=== PATIENT | male | born 1955 | race American Indian/Alaskan Native ===

== ENCOUNTER 2016-06-19 14:42 | Inpatient (IN) | payer OTHER ==
--- NOTE | 2016-06-19 15:33 | C.PDOC ---
History Of Present Illness 61-year-old male, presents to the emergency department requesting detox fro Heroin. Patients last use was this morning. Denies any physical complaints at this time. patient snorts. Denies chest pain/shortness of breath. Time Seen by Provider: 06/19/16 14:59 Chief Complaint (Nursing): Substance Abuse History Per: Patient History/Exam Limitations: no limitations Past Medical History Reviewed: Historical Data, Nursing Documentation, Vital Signs Vital Signs: Last Vital Signs Temp 99.0 F 06/19/16 17:56 Pulse 79 06/19/16 17:56 Resp 16 06/19/16 17:56 BP 153/87 H 06/19/16 17:56 Pulse Ox 96 06/19/16 17:56 Family History: States: Unknown Family Hx - Social History Hx Alcohol Use: No Hx Substance Use: Yes - Immunization History Hx Influenza Vaccination: No Review Of Systems Except As Marked, All Systems Reviewed And Found Negative. Constitutional: Negative for: Fever, Chills Cardiovascular: Negative for: Chest Pain Respiratory: Negative for: Shortness of Breath Gastrointestinal: Negative for: Vomiting Skin: Negative for: Rash Neurological: Negative for: Weakness, Numbness Physical Exam - Physical Exam Appears: Non-toxic, No Acute Distress Oral Mucosa: Moist Lips: Normal Appearing Neck: Normal ROM Respiratory: No Accessory Muscle Use Extremity: Normal ROM Neurological/Psych: Oriented x3, Normal Speech ED Course And Treatment - Laboratory Results Result Diagrams: 06/19/16 15:47 06/19/16 15:47 O2 Sat by Pulse Oximetry: 99 (RA) Pulse Ox Interpretation: Normal Progress Note: Blood work, UA, UDS ordered and reviewed. 5:50pm-Patient medicall cleared. 6:00pm-Patient accepted by Dr. Hodges for heroin detox admission. Disposition - Disposition Disposition: HOSPITALIZED Disposition Time: 18:00 Condition: STABLE - Clinical Impression Clinical Impression: Heroin dependence - Scribe Statement The provider has reviewed the documentation as recorded by the Shellyibramya Leon All medical record entries made by the Scribe were at my direction and personally dictated by me. I have reviewed the chart and agree that the record accurately reflects my personal performance of the history, physical exam, medical decision making, and the department course for this patient. I have also personally directed, reviewed, and agree with the discharge instructions and disposition.
[2016-06-19 15:55] LABS: BASO # 0.1 K/uL (0.0-0.2); BASO % 1.3 % (0.0-2.0); EOS # 0.2 K/uL (0.0-0.7); EOS % 5.1 % (0.0-4.0); HEMATOCRIT 39.5 % (35.0-51.0); LYMPH # 1.5 K/uL (1.0-4.3); LYMPH % 35.5 % (20.0-40.0); MEAN CELL VOLUME 83.7 fL (80.0-94.0); MEAN CORPUSCULAR HEMOGLOBIN 26.5 pg (27.0-31.0); MEAN CORPUSCULAR HGB CONC 31.6 g/dL (33.0-37.0); MEAN PLATELET VOLUME 7.3 fL (7.2-11.7); MONO # 0.4 K/uL (0.0-0.8); MONO % 8.6 % (0.0-10.0); RED CELL DISTRIBUTION WIDTH 14.3 % (11.5-14.5); WHITE BLOOD COUNT 4.4 K/uL (4.8-10.8)
[2016-06-19 16:06] LABS: CHLORIDE 98 mmol/L (98-107)
[2016-06-19 16:07] LABS: POTASSIUM 4.3 mmol/L (3.6-5.2); SODIUM 140 mmol/L (132-148)
[2016-06-19 16:09] LABS: ALB/GLOB RATIO 1.2 (1.0-2.1); ALKALINE PHOSPHATASE 52 U/L (38-126); AST/SGOT 30 U/L (17-59); BILIRUBIN,TOTAL 0.3 mg/dL (0.2-1.3); BLOOD UREA NITROGEN 24 mg/dL (9-20); CARBON DIOXIDE 30 mmol/L (22-30); GFR AFRICAN-AMERICAN > 60; TOTAL PROTEIN 7.6 g/dL (6.3-8.3)
[2016-06-19 16:10] LABS: ALCOHOL SERUM < 10 mg/dl (0-10); ALT/SGPT 26 U/L (21-72); GLUCOSE,RANDOM 99 mg/dL (75-110)
[2016-06-19 16:56] LABS: RBC URINE 2 /hpf (0-3); URINE BACTERIA RARE (<OCC); URINE BILIRUBIN NEGATIVE (NEGATIVE); URINE BLOOD NEGATIVE (NEGATIVE); URINE COLOR Yellow (YELLOW); URINE GLUCOSE (UA) NORMAL (Normal); URINE KETONE NEGATIVE (NEGATIVE); URINE LEUKOCYTE ESTERASE NEG Leu/uL (Negative); URINE PROTEIN NEGATIVE (NEGATIVE); URINE UROBILINOGEN NORMAL mg/dL (0.2-1.0); WBC URINE < 1 /hpf (0-5)
[2016-06-19] MEDS ORDERED: Buprenorphine Hydrochloride 2 mg SL ONE ×2 (18:30→20:00)
[2016-06-20] MEDS ORDERED: Buprenorphine Hydrochloride 2 mg SL ONE (10:00)
--- NOTE | 2016-06-20 11:54 | PCM.PSYCH ---
Initial Psychiatric Evaluation - Initial Psychiatric Evaluation Type of Admission: Voluntary Legal Status: Capacity Chief Complaint (in patient's own words): I came here to get help History of Present Illness and Precipitating Events: This is a 61 years old AAM currently living alone and unemployed, with a history of opiate use disorder, cocaine use disorder, and depressive disorder, came to the ED to get help in heroin detox. Patient reports of a long history of abusing heroin and cocaine. As per the patient he started abusing heroin in 20s and over the course of years he started sniffing and injecting increasing amounts of heroin. As per the patient , day before yesterday he injected almost 10 bags of heroin alongwith $20 worth of cocaine, became increasingly depressed and started having withdrawal symptoms and so came to the hospital to get help. Patient reports of irritable and depressed mood, at times feelings of hopelessness and helplessness. Pt reports withdrawal symptoms including sweating , headaches, anxiety, nausea, abdominal cramps and joint pains. However, he denies any suicidal ideation or homicidal ideation. Patient denies any auditory or visual hallucinations or any psychotic or manic symptoms. He denies any other substance abuse. Past medical history: None Past psychiatric history: Patient denies any past history of inpatient psychiatric hospitalizations or any history of follow-up with any psychiatrist. However, patient reports history of one detox and 1 rehabilitation in the past, years ago. Patient reports h/o depression and history of suicidal ideation in the past but denies any suicidal attempt. He denies any history of homicidal ideation or attempt in the past. Patient denies any history of auditory or visual hallucinations or any psychotic symptoms in the past Current Medications: Active Medications Generic Name Dose Route Start Last Admin Trade Name Freq PRN Reason Stop Dose Admin Clonidine HCl 0.1 mg 06/19/16 18:28 06/20/16 05:25 Catapres PO 0.1 mg Q8 PRN Administration opiate withdrawal Dicyclomine HCl 10 mg 06/19/16 18:29 Bentyl PO Q6 PRN abdominal spasm Hydroxyzine HCl 25 mg 06/19/16 18:28 06/20/16 09:28 Atarax PO 25 mg Q8 PRN Administration Anxiety Ibuprofen 600 mg 06/19/16 18:29 06/20/16 05:25 Motrin Tab PO 600 mg Q8 PRN Administration Pain, moderate (4-7) Influenza Virus Vaccine 45 mcg 06/21/16 09:00 Afluria IM 06/21/16 09:01 .ONCE ONE Pneumococcal Polyvalent Vaccine 0.5 ml 06/21/16 09:00 Pneumovax 23 Vaccine IM 06/21/16 09:01 .ONCE ONE Trazodone HCl 50 mg 06/19/16 22:00 06/19/16 21:30 Desyrel PO 50 mg HS PRN Administration Insomnia Past Psychiatric History - Past Psychiatric History Previous Treatment History: None Pertinent Medical Hx (Current Medical&Sleep Prob, Allergies): Allergies Allergy/AdvReac Type Severity Reaction Status Date / Time No Known Allergies Allergy Verified 06/19/16 15:34 No Known Home Med 06/19/16 Review of Systems - Review of Systems All systems: reviewed and no additional remarkable complaints except - Psychiatric Psychiatric: Anxiety, Depression, Irritability. absent: Auditory Hallucinations , Suicidal Ideation, Visual Hallucinations Mental Status Examination - Personal Presentation Personal Presentation: Looks stated age - Affect Affect: Constricted, Depressed - Motor Activity Motor Activity: Calm - Reliability in Providing Information Reliability in Providing Information: Good - Speech Speech: Organized - Mood Mood: Depressed, Anxious - Formal Thought Process Formal Thought Process: No Impairment - Obsessions/Compulsions Obsessions: No Compulsions: No - Cognitive Functions Orientation: Person, Place, Situation, Time Sensorium: Alert Attention/Concentration: Attentive Abstract Thinking: Sontag Estimate of Intelligence: Below average Judgement: Imparied, as evidence by: Poor judgement, Imparied, as evidence by: Lack of insight into illness - Risk Risk: Withdrawal, Diminished functioning - Strength & Assets Inventory Strength & Assets Inventory: Cooperative - Limitations Limitations: Living alone DSM 5 DX - DSM 5 DSM 5 Diagnosis: Opioid use disorder severe Opioid withdrawal Cocaine use disorder severe Major depressive disorder recurrent moderate - Recommended/Plan of Treatment Treatment Recommendations and Plan of Treatment: Opioid use disorder severe CBT Psychoeducation Supportive therapy, individual therapy Use CA for abstinence Opioid withdrawal CBT Psychoeducation Supportive therapy, individual therapy Clonidine when necessary Start Subutex Cocaine use disorder severe Monitor signs and symptoms Use CA for abstinence Major depressive disorder recurrent moderate CBT Psychoeducation Supportive therapy, individual therapy Start Paxil 10 mg PO daily Start Trazodone 50 mg PO Q HS - Smoking Cessation Smoking Cessation Initiated: No
--- NOTE | 2016-06-20 22:39 | CP.PCM.CON ---
<Christen Fitzgerald - Last Filed: 06/21/16 04:40> History of Present Illness - History of Present Illness History of Present Illness: Internal medicine consult for Dr. Roberto Fitzgerald, PGY-1 Pt S & E at bedside. 61M with PMH sig for - consulted for HTN. Patient is not currently on any medications at home, but he is aware of his high blood pressure diagnosis. Pt denies any symptoms related to blood pressure at this time - no headache, vision changes, chest pain, abdominal pain, dizziness. PMH: HTN PSH: R inguinal hernia repair All: NKA SH: Admits to occasional ETOH use - #1-2 drinks/mo, tobacco use: 1/2ppd x 30+ yrs, daily heroin use, crack use Review of Systems - Review of Systems All systems: reviewed and no additional remarkable complaints except - Constitutional Constitutional: absent: Chills, Fever - EENT Eyes: absent: Blurred Vision, Change in Vision Ears: absent: Dizziness Nose/Mouth/Throat: absent: Sore Throat - Cardiovascular Cardiovascular: absent: Chest Pain, Leg Edema - Respiratory Respiratory: absent: Cough - Gastrointestinal Gastrointestinal: absent: Abdominal Pain, Nausea, Vomiting - Genitourinary Genitourinary: absent: Dysuria, Hematuria - Integumentary Integumentary: absent: Lesions - Neurological Neurological: absent: Dizziness, Tingling, Weakness Past Patient History - Past Medical History & Family History Past Medical History?: Yes - Past Social History Smoking Status: Light Smoker < 10 Cigarettes Daily - CARDIAC Hx Cardiac Disorders: No Hx Hypertension: No - PULMONARY Hx Tuberculosis: No - NEUROLOGICAL HX Cerebrovascular Accident: No Hx Seizures: No - HEMATOLOGICAL/ONCOLOGICAL Hx Cancer: No Hx Human Immunodeficiency Virus (HIV): No - MUSCULOSKELETAL/RHEUMATOLOGICAL Hx Falls: No Other/Comment: bunion on rt foot - GENITOURINARY/GYNECOLOGICAL Hx Sexually Transmitted Disorders: No - PSYCHIATRIC Hx Substance Use: Yes - SURGICAL HISTORY Hx Herniorrhaphy: Yes - ANESTHESIA Hx Anesthesia: No Hx Anesthesia Reactions: No Hx Malignant Hyperthermia: No Has any member of the family had a problem w/ anesthesia?: No Meds Allergies/Adverse Reactions: Allergies Allergy/AdvReac Type Severity Reaction Status Date / Time No Known Allergies Allergy Verified 06/19/16 15:34 - Medications Medications: Current Medications Clonidine HCl (Catapres) 0.1 mg PO Q8 PRN PRN Reason: opiate withdrawal Last Admin: 06/20/16 16:27 Dose: 0.1 mg Dicyclomine HCl (Bentyl) 10 mg PO Q6 PRN PRN Reason: abdominal spasm Gabapentin (Neurontin) 100 mg PO TID [facility] Last Admin: 06/20/16 18:21 Dose: 100 mg Hydroxyzine HCl (Atarax) 25 mg PO Q8 PRN PRN Reason: Anxiety Last Admin: 06/20/16 22:04 Dose: 25 mg Ibuprofen (Motrin Tab) 600 mg PO Q8 PRN PRN Reason: Pain, moderate (4-7) Last Admin: 06/20/16 05:25 Dose: 600 mg Influenza Virus Vaccine (Afluria) 45 mcg IM .ONCE ONE Stop: 06/21/16 09:01 Paroxetine HCl (Paxil) 10 mg PO DAILY [facility] Pneumococcal Polyvalent Vaccine (Pneumovax 23 Vaccine) 0.5 ml IM .ONCE ONE Stop: 06/21/16 09:01 Trazodone HCl (Desyrel) 50 mg PO HS PRN PRN Reason: Insomnia Last Admin: 06/20/16 22:04 Dose: 50 mg Physical Exam - Constitutional Appears: Non-toxic, No Acute Distress - Head Exam Head Exam: ATRAUMATIC, NORMAL INSPECTION, NORMOCEPHALIC - Eye Exam Eye Exam: EOMI, Normal appearance, PERRL Pupil Exam: NORMAL ACCOMODATION, PERRL - ENT Exam ENT Exam: Mucous Membranes Moist, Normal Exam - Neck Exam Neck exam: Positive for: Full Rom, Normal Inspection - Respiratory Exam Respiratory Exam: Clear to Auscultation Bilateral, NORMAL BREATHING PATTERN. absent: Rales, Rhonchi, Wheezes - Cardiovascular Exam Cardiovascular Exam: REGULAR RHYTHM, +S1, +S2 - GI/Abdominal Exam GI & Abdominal Exam: Normal Bowel Sounds, Soft. absent: Distended, Tenderness - Extremities Exam Extremities exam: Positive for: normal inspection, tenderness (over right medial aspect of proximal foot) - Back Exam Back exam: FULL ROM, NORMAL INSPECTION - Neurological Exam Neurological exam: Alert, CN II-XII Intact, Oriented x3 - Psychiatric Exam Psychiatric exam: Normal Affect, Normal Mood - Skin Skin Exam: Dry, Intact, Normal Color, Warm Results - Vital Signs Recent Vital Signs: Last Vital Signs Temp 97.5 F L 06/20/16 20:53 Pulse 87 06/20/16 20:53 Resp 18 06/20/16 20:53 BP 150/111 H 06/20/16 20:53 Pulse Ox 98 06/20/16 20:53 - Labs Result Diagrams: 06/19/16 15:47 06/19/16 15:47 Assessment & Plan - Assessment and Plan (Free Text) Assessment: High blood pressure BP 150/111 Continue to monitor at this time Will consider starting antihypertensive if warranted Right Foot pain Consider podiatry consult Continue detoxification drug program DW attending - Date & Time Date: 06/20/16 Time: 11:30 <Jose Boss - Last Filed: 06/21/16 06:32> Meds - Medications Medications: Current Medications Clonidine HCl (Catapres) 0.1 mg PO Q8 PRN PRN Reason: opiate withdrawal Last Admin: 06/20/16 16:27 Dose: 0.1 mg Dicyclomine HCl (Bentyl) 10 mg PO Q6 PRN PRN Reason: abdominal spasm Gabapentin (Neurontin) 100 mg PO TID TAMY Last Admin: 06/20/16 18:21 Dose: 100 mg Hydroxyzine HCl (Atarax) 25 mg PO Q8 PRN PRN Reason: Anxiety Last Admin: 06/20/16 22:04 Dose: 25 mg Ibuprofen (Motrin Tab) 600 mg PO Q8 PRN PRN Reason: Pain, moderate (4-7) Last Admin: 06/20/16 05:25 Dose: 600 mg Influenza Virus Vaccine (Afluria) 45 mcg IM .ONCE ONE Stop: 06/21/16 09:01 Paroxetine HCl (Paxil) 10 mg PO DAILY [facility] Pneumococcal Polyvalent Vaccine (Pneumovax 23 Vaccine) 0.5 ml IM .ONCE ONE Stop: 06/21/16 09:01 Trazodone HCl (Desyrel) 50 mg PO HS PRN PRN Reason: Insomnia Last Admin: 06/20/16 22:04 Dose: 50 mg Results - Vital Signs Recent Vital Signs: Last Vital Signs Temp 97.8 F 06/21/16 04:41 Pulse 86 06/21/16 04:41 Resp 18 06/21/16 04:41 BP 141/98 H 06/21/16 04:41 Pulse Ox 97 06/21/16 04:41 - Labs Result Diagrams: 06/19/16 15:47 06/19/16 15:47 Assessment & Plan - Date & Time Date: 06/21/16 (I have seen and examined the patient. I agree with the findings and plan of care as documented by Dr. Fitzgerald. Patient with high blood pressure reading. Patient not on meds at home. Continue to monitor BP and if continues to be elevated, will start antihypertensive medication after 1 day of monitoring. Patient's BP may be elevated currently due to stress versus actually having essential hypertension. Monitor BP.) Time: 06:30 Attending/Attestation - Attestation I have personally seen and examined this patient.: Yes I have fully participated in the care of the patient.: Yes I have reviewed all pertinent clinical information: Yes
[2016-06-21] MEDS ORDERED: Influenza Virus Vaccine 45 mcg/0.5 ml Syr IM ONE (09:00)
[2016-06-21] MEDS ORDERED: Pneumococcal 23-Valent Vaccine IM ONE (09:00)
[2016-06-21] MEDS ORDERED: Buprenorphine Hydrochloride 2 mg SL ONE (10:00)
--- NOTE | 2016-06-21 11:37 | PCM.PYCHPN ---
Psychiatric Progress Note - Psychiatric Progress Note Patient seen today, length of contact: 15 minutes Patient Chief Complaint: I'm feeling little better. Problems Identified/Issues Discussed: Patient seen. Chart reviewed. Case discussed with the staff. Issues related to illness and treatment were discussed with the patient. Reported feeling little better with treatment. Very few withdrawal symptoms. Patient's blood pressure was high yesterday. Today his blood pressure is on better side. We will continue observing and if needed will start antihypertensives medications. At the time of evaluation, patient was awake alert oriented 3, had no delusions, no auditory or visual hallucinations, no suicidal ideations or homicidal ideations. Slept better during the night. Medical Problems: Hypertension, not on any medications. Diagnostic Results: Reviewed DSM 5 Symptoms Update: Improvement in symptoms with treatment Medication Change: No Medical Record Reviewed: Yes Consults ordered or reviewed: Reviewed Mental Status Examination - Cognitive Function Orientation: Person, Place, Situation, Time Memory: Intact Attention: WNL Concentration: WNL Association: WNL Fund of Knowledge: [facility] Decription of patient's judgement and insights: Fair - Mood Mood: Depressed (Less than before) - Affect Affect: Depressed - Speech Speech: Appropriate - Formal Thought Process Formal Thought Process: No Impairment Psychotic Thoughts and Behaviors: None - Suicidal Ideation Suicidal Ideation: No - Homicidal Ideation Homicidal Ideation: No Goal/Treatment Plan - Goal/Treatment Plan Need for Continued Stay: Remain at risks for inpatient hospitalization, Discharge may exacerbated symptoms, Severe functional impairment Progress Toward Problem(s) and Goals/Treatment Plan: Improving with treatment Patient education Supportive therapy Continue treatment as before 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
--- NOTE | 2016-06-21 17:04 | CP.PCM.PN ---
Subjective - Date & Time of Evaluation Date of Evaluation: 06/21/16 Time of Evaluation: 08:55 - Subjective Subjective: Medicine Note- Hospitalist Service Patient was seen and examined at bedside. Patient reports that he is feeling better today, less anxious and minimal withdrawal symptoms at the moment. Patient understands he has hypertension and was told this previous, though he never took medication for it. Patient has no acute complaints at the moment except for foot pain, which he says he has had evaluated outpatient and was told he needed surgery for. No events overnight, per nursing. Objective - Vital Signs/Intake and Output Vital Signs (last 24 hours): Temp Pulse Resp BP Pulse Ox 98.6 F 91 H 18 139/91 H 98 06/21/16 15:30 06/21/16 15:30 06/21/16 15:30 06/21/16 15:30 06/21/16 15:30 - Medications Medications: Current Medications Clonidine HCl (Catapres) 0.1 mg PO Q8 PRN PRN Reason: opiate withdrawal Last Admin: 06/21/16 16:34 Dose: 0.1 mg Dicyclomine HCl (Bentyl) 10 mg PO Q6 PRN PRN Reason: abdominal spasm Gabapentin (Neurontin) 100 mg PO TID [facility] Last Admin: 06/21/16 17:01 Dose: 100 mg Hydroxyzine HCl (Atarax) 25 mg PO Q8 PRN PRN Reason: Anxiety Last Admin: 06/20/16 22:04 Dose: 25 mg Ibuprofen (Motrin Tab) 600 mg PO Q8 PRN PRN Reason: Pain, moderate (4-7) Last Admin: 06/20/16 05:25 Dose: 600 mg Paroxetine HCl (Paxil) 10 mg PO DAILY [facility] Last Admin: 06/21/16 09:17 Dose: 10 mg Trazodone HCl (Desyrel) 50 mg PO HS PRN PRN Reason: Insomnia Last Admin: 06/20/16 22:04 Dose: 50 mg - Constitutional Appears: Non-toxic, No Acute Distress - Head Exam Head Exam: ATRAUMATIC, NORMAL INSPECTION, NORMOCEPHALIC - Eye Exam Pupil Exam: NORMAL ACCOMODATION - ENT Exam ENT Exam: Mucous Membranes Moist - Respiratory Exam Respiratory Exam: Clear to Ausculation Bilateral, NORMAL BREATHING PATTERN. absent: Prolonged Expiratory Phase, Rales, Rhonchi, Wheezes - Cardiovascular Exam Cardiovascular Exam: REGULAR RHYTHM, +S1, +S2 - GI/Abdominal Exam GI & Abdominal Exam: Soft, Normal Bowel Sounds. absent: Tenderness, Diminished Bowel Sounds, Hypoactive Bowel Sounds - Extremities Exam Extremities Exam: Normal Capillary Refill Additional comments: tender on medial side - Neurological Exam Neurological Exam: Alert, Awake, Oriented x3 - Psychiatric Exam Psychiatric exam: Normal Affect, Normal Mood - Skin Skin Exam: Dry, Intact, Normal Color, Warm Assessment and Plan - Assessment and Plan (Free Text) Assessment: High blood pressure Continue to monitor for now.Patient's BP appears to be decreasing without intervention, possibly secondary to detox treatment. Started on Lisinopril 10mg PO Daily. Will continue to follow Right Foot pain Discussed with patient, he has seen podiatry in the past and was told he had bone spurs that are causing swelling and will need surgery. Patient will need followup outpatient. Continue to monitor. Continue detox as per psych management.
--- NOTE | 2016-06-22 06:50 | CP.PCM.PN ---
<EusebioJamar - Last Filed: 06/22/16 21:58> Subjective - Date & Time of Evaluation Date of Evaluation: 06/22/16 Time of Evaluation: 08:00 - Subjective Subjective: Medicine Note- Hospitalist Service Patient was seen and examined at bedside. Patient reports no acute complaints at this time. Patient says he feels better than yesterday, slept well. No events overnight, per nursing. Patient was instructed to continue medications upon discharge and seek primary care followup. Instructions given to followup in [facility] if unable to find others. Objective - Vital Signs/Intake and Output Vital Signs (last 24 hours): Temp Pulse Resp BP Pulse Ox 98.2 F 86 20 123/81 97 06/22/16 06:21 06/22/16 06:21 06/22/16 06:21 06/22/16 06:21 06/22/16 06:21 - Medications Medications: Current Medications Clonidine HCl (Catapres) 0.1 mg PO Q8 PRN PRN Reason: opiate withdrawal Last Admin: 06/21/16 16:34 Dose: 0.1 mg Dicyclomine HCl (Bentyl) 10 mg PO Q6 PRN PRN Reason: abdominal spasm Gabapentin (Neurontin) 100 mg PO TID [facility] Last Admin: 06/21/16 17:01 Dose: 100 mg Hydroxyzine HCl (Atarax) 25 mg PO Q8 PRN PRN Reason: Anxiety Last Admin: 06/20/16 22:04 Dose: 25 mg Ibuprofen (Motrin Tab) 600 mg PO Q8 PRN PRN Reason: Pain, moderate (4-7) Last Admin: 06/22/16 06:12 Dose: 600 mg Lisinopril (Zestril) 10 mg PO DAILY [facility] Last Admin: 06/21/16 20:58 Dose: 10 mg Paroxetine HCl (Paxil) 10 mg PO DAILY [facility] Last Admin: 06/21/16 09:17 Dose: 10 mg Trazodone HCl (Desyrel) 50 mg PO HS PRN PRN Reason: Insomnia Last Admin: 06/21/16 20:58 Dose: 50 mg - Constitutional Appears: Non-toxic, No Acute Distress - Head Exam Head Exam: ATRAUMATIC, NORMAL INSPECTION, NORMOCEPHALIC - Eye Exam Pupil Exam: NORMAL ACCOMODATION, PERRL - ENT Exam ENT Exam: Mucous Membranes Moist - Respiratory Exam Respiratory Exam: Clear to Ausculation Bilateral, NORMAL BREATHING PATTERN. absent: Prolonged Expiratory Phase, Rales, Rhonchi, Wheezes - Cardiovascular Exam Cardiovascular Exam: REGULAR RHYTHM, +S1, +S2 - GI/Abdominal Exam GI & Abdominal Exam: Soft, Normal Bowel Sounds. absent: Tenderness, Diminished Bowel Sounds, Hypoactive Bowel Sounds - Extremities Exam Extremities Exam: Normal Capillary Refill, Normal Inspection - Neurological Exam Neurological Exam: Alert, Awake, Oriented x3 - Psychiatric Exam Psychiatric exam: Normal Affect, Normal Mood - Skin Skin Exam: Dry, Intact, Normal Color, Warm Assessment and Plan - Assessment and Plan (Free Text) Assessment: High blood pressure Continue Lisinopril 10mg PO Daily. BP monitored throughout day, significant improvement and stability. Patient instructed to establish primary care upon discharge, advised followup in the [facility] if unable to find others. We will sign off at this time. Please reconsult as needed. Right Foot pain Discussed with patient, he has seen podiatry in the past and was told he had bone spurs that are causing swelling and will need surgery. Patient will need followup outpatient. Continue to monitor. Continue detox as per psych management. <Eunice Blanchard V - Last Filed: 06/23/16 10:02> Objective - Vital Signs/Intake and Output Vital Signs (last 24 hours): Temp Pulse Resp BP Pulse Ox 98.4 F 84 16 144/88 100 06/23/16 08:42 06/23/16 08:42 06/23/16 08:42 06/23/16 08:42 06/23/16 08:42 - Medications Medications: Current Medications Clonidine HCl (Catapres) 0.1 mg PO Q8 PRN PRN Reason: opiate withdrawal Last Admin: 06/22/16 19:28 Dose: 0.1 mg Dicyclomine HCl (Bentyl) 10 mg PO Q6 PRN PRN Reason: abdominal spasm Famotidine (Pepcid) 20 mg PO BID [facility] Last Admin: 06/22/16 17:04 Dose: 20 mg Gabapentin (Neurontin) 100 mg PO TID [facility] Last Admin: 06/22/16 17:04 Dose: 100 mg Hydroxyzine HCl (Atarax) 25 mg PO Q8 PRN PRN Reason: Anxiety Last Admin: 06/22/16 15:18 Dose: 25 mg Ibuprofen (Motrin Tab) 400 mg PO Q6 PRN PRN Reason: Pain, moderate (4-7) Lisinopril (Zestril) 10 mg PO DAILY [facility] Last Admin: 06/22/16 09:09 Dose: 10 mg Nicotine (Nicoderm Cq) 1 patch TD DAILY [facility] Last Admin: 06/22/16 16:31 Dose: 1 patch Paroxetine HCl (Paxil) 10 mg PO DAILY [facility] Last Admin: 06/22/16 09:09 Dose: 10 mg Trazodone HCl (Desyrel) 50 mg PO HS PRN PRN Reason: Insomnia Last Admin: 06/22/16 22:13 Dose: 50 mg Attending/Attestation - Attestation I have personally seen and examined this patient.: Yes I have fully participated in the care of the patient.: Yes I have reviewed all pertinent clinical information, including history, physical exam and plan: Yes Notes (Text): This is late computer entry for 06/22/16. Patient seen, examined, and case discussed with day-time resident. Patient is currently in detox for his heroin and cocaine use. Patient has not seen a doctor in quite some time because he has not been able to afford to. Patient reports history of hypertension but has not taken medications for it. Patient started on Lisinopil 10 MG Po Daily. Vital signs monitored. Blood pressure controlled on Lisinopril. In terms of feet pain, patient is recommended to follow-up with credit operations processor as outpatient. Medicine team to sign off. Please reconsult PRN if need.
[2016-06-22] MEDS ORDERED: Buprenorphine Hydrochloride 2 mg SL ONE (10:00)
--- NOTE | 2016-06-22 15:48 | PCM.PYCHPN ---
Psychiatric Progress Note - Psychiatric Progress Note Patient seen today, length of contact: 15 minutes Patient Chief Complaint: I'm feeling better. Can I get something for pain in my foot Problems Identified/Issues Discussed: Patient seen. Chart reviewed. Case discussed with the staff. Issues related to illness and treatment were discussed with the patient. Reported feeling better with treatment. Very few withdrawal symptoms. Reported compliant with treatment with no adverse affects. Patient was seen by medicine because of his hypertension and was started on Norvasc 10 mg. patient reported pain in right foot below ankle for last 1 year . On evaluation appeared tendinitis. At the time of evaluation, patient was awake alert oriented 3, had no delusions, no auditory or visual hallucinations, no suicidal ideations or homicidal ideations. Slept better during the night. Medical Problems: Hypertension Diagnostic Results: Reviewed DSM 5 Symptoms Update: Improving with treatment Medication Change: No Medical Record Reviewed: Yes Consults ordered or reviewed: Reviewed Mental Status Examination - Cognitive Function Orientation: Person, Place, Situation, Time Memory: Intact Attention: WNL Concentration: WNL Association: WNL Fund of Knowledge: [facility] Decription of patient's judgement and insights: Fair - Mood Mood: Depressed (Less than before) - Affect Affect: Depressed - Speech Speech: Appropriate - Formal Thought Process Formal Thought Process: No Impairment Psychotic Thoughts and Behaviors: None reported - Suicidal Ideation Suicidal Ideation: No - Homicidal Ideation Homicidal Ideation: No Goal/Treatment Plan - Goal/Treatment Plan Need for Continued Stay: Remain at risks for inpatient hospitalization, Discharge may exacerbated symptoms, Severe functional impairment Progress Toward Problem(s) and Goals/Treatment Plan: Improving with treatment Patient education Supportive therapy Continue treatment as before Patient wants to go to a long-term program after discharge from the hospital Estimated Date of D/C: 06/24/16 - Smoking Cessation Smoking Cessation Initiated: No
--- NOTE | 2016-06-23 12:08 | PCM.PYCHPN ---
Psychiatric Progress Note - Psychiatric Progress Note Patient seen today, length of contact: 15 minutes Patient Chief Complaint: I'm feeling better. Pain in my forte is also better Problems Identified/Issues Discussed: Patient seen. Chart reviewed. Case discussed with the staff. Issues related to illness and treatment were discussed with the patient. Reported feeling better with treatment. Very few withdrawal symptoms. Reported compliant with treatment with no adverse affects. Patient was seen by medicine because of his hypertension and was started on Norvasc 10 mg. reported less pain in his right foot. At the time of evaluation, patient was awake alert oriented 3, had no delusions, no auditory or visual hallucinations, no suicidal ideations or homicidal ideations. Slept better during the night. Medical Problems: Hypertension Diagnostic Results: Reviewed DSM 5 Symptoms Update: Improving with treatment Medication Change: No Medical Record Reviewed: Yes Consults ordered or reviewed: Reviewed Mental Status Examination - Cognitive Function Orientation: Person, Place, Situation, Time Memory: Intact Attention: WNL Concentration: WNL Association: WNL Fund of Knowledge: [facility] Decription of patient's judgement and insights: Fair - Mood Mood: Depressed (Less than before) - Affect Affect: Depressed - Speech Speech: Appropriate - Formal Thought Process Formal Thought Process: No Impairment Psychotic Thoughts and Behaviors: None - Suicidal Ideation Suicidal Ideation: No - Homicidal Ideation Homicidal Ideation: No Goal/Treatment Plan - Goal/Treatment Plan Need for Continued Stay: Remain at risks for inpatient hospitalization, Discharge may exacerbated symptoms, Severe functional impairment Progress Toward Problem(s) and Goals/Treatment Plan: Improving with treatment Patient education Supportive therapy Continue treatment as before 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
[2016-06-23 14:51] VITALS: RESP 18
[2016-06-24 09:52] VITALS: BP 130/84; PULSE 91; TEMP 98.2; O2SAT 99
--- NOTE | 2016-06-24 10:53 | PCM.PYCHDC ---
Mental Status Examination - Mental Status Examination Orientation: Person, Place, Situation, Time Memory: Intact Mood: Neutral Affect: Other (Appropriate) Speech: Appropriate Attention: WNL Concentration: WNL Association: WNL Fund of Knowledge: WNL Formal Thought Process: No Impairment Description of patient's judgement and insight: Fair Psychotic Thoughts and Behaviors: None Suicidal Ideation: No Current Homicidal Ideation?: No Discharge Summary - Discharge Note Reason for Hospitalization: Opiate use and cocaine use Psychiatric History (includes Medical, Family, Personal Hx): Opiate use, cocaine use, hypertension Laboratory Data: Reviewed Consultations:: List each consultation separately and include: 1. Reason for request. 2. Findings. 3. Follow-up Consultations: Reviewed Summary of Hospital Course include:: 1. Description of specific treatment plan utilized for patients during their course of treatmen. 2. Summarize the time- course for resolution of acute symptoms and/or regressed behaviors. 3. Describe issues identified and worked on during hospitalization. 4. Describe medication utilized. 5. Describe medical problems identified and treated. 6. Reassessment of suicide risk Summary of Hospital Course: This is a 61 years old AAM currently living alone and unemployed, with a history of opiate use disorder, cocaine use disorder, and depressive disorder, came to the ED to get help in heroin detox. Patient reports of a long history of abusing heroin and cocaine. As per the patient he started abusing heroin in 20s and over the course of years he started sniffing and injecting increasing amounts of heroin. As per the patient , day before yesterday he injected almost 10 bags of heroin alongwith $20 worth of cocaine, became increasingly depressed and started having withdrawal symptoms and so came to the hospital to get help. Patient reports of irritable and depressed mood, at times feelings of hopelessness and helplessness. Pt reports withdrawal symptoms including sweating , headaches, anxiety, nausea, abdominal cramps and joint pains. However, he denies any suicidal ideation or homicidal ideation. Patient denies any auditory or visual hallucinations or any psychotic or manic symptoms. He denies any other substance abuse. Patient was admitted because of opiate withdrawal treatment. Was treated with Subutex and other when necessary medications. During his stay in the hospital his blood pressure was elevated. Medical team was called to evaluate the patient. Patient was started on Norvasc initially and later lisinopril for blood pressure. With the above treatment patient started feeling better, no adverse affects from the treatment, no withdrawal symptoms. Today patient was stable and ready for discharge. At the time of evaluation and discharge, patient was awake alert oriented 3, had no delusions, no auditory or visual hallucinations, no suicidal ideations or homicidal ideations, patient was discharged in a stable condition. - Final Diagnosis (DSM 5) Condition upon Discharge: STABLE Disposition: HOME/ ROUTINE Follow-up Treatment Plan: Patient will go to [facility] in [place]. Prescriptions/Medication Reconciliation: traZODone [Desyrel] 50 mg PO HS PRN #30 tab PRN Reason: Insomnia PARoxetine [Paxil] 10 mg PO DAILY #30 tab Lisinopril [Zestril] 10 mg PO DAILY #30 tab - Smoking Cessation Smoking Cessation Medication prescribed: Yes - Antipsychotic Medications Pt discharged on 2 or more routine antipsychotic medications: No
== END 2016-06-24 11:30 | disposition home or self-care (01) | DRG 744 ==
LOC: C.ER 14:42 → C.7D 18:00
PROVIDERS: ADMIT Psychiatry & Neurology Psychiatry; ATTEND Psychiatry & Neurology Psychiatry
PROC: HZ52ZZZ Individual Psychotherapy for Substance Abuse Treatment, Cognitive-Behavioral (ICD-10-PCS; principal; 2016-06-19)
PROC: HZ59ZZZ Individual Psychotherapy for Substance Abuse Treatment, Supportive (ICD-10-PCS; 2016-06-19)
PROC: HZ56ZZZ Individual Psychotherapy for Substance Abuse Treatment, Psychoeducation (ICD-10-PCS; 2016-06-19)
PROC: HZ93ZZZ Pharmacotherapy for Substance Abuse Treatment, Antabuse (ICD-10-PCS; 2016-06-19)
PROC: HZ2ZZZZ Detoxification Services for Substance Abuse Treatment (ICD-10-PCS; 2016-06-19)
DX: F11.23 Opioid dependence with withdrawal (principal); F33.1 Major depressive disorder, recurrent, moderate; I10 Essential (primary) hypertension; F14.90 Cocaine use, unspecified, uncomplicated; F41.9 Anxiety disorder, unspecified; Z72.0 Tobacco use; M77.9 Enthesopathy, unspecified